=== PATIENT | female | born 1980 | race African-American/Black ===

== ENCOUNTER 2017-09-18 09:10 | Emergency (ER) | payer OTHER ==
[~2017-09-18] VITALS: Ht 154.9 cm; Wt 61.2 kg
[2017-09-18 09:19] VITALS: BP 152/115
[2017-09-18] MEDS ORDERED: ADVAIR HFA 230M12 GM INH (09:20)
[2017-09-18] MEDS ORDERED: SPIRIVA INH (09:20)
[2017-09-18] MEDS ORDERED: PROAIR RESPICL90 MCG INH (09:20)
[2017-09-18] MEDS ORDERED: AUGMENTIN 875-1 EACH PO (09:37)
[2017-09-18] MEDS ORDERED: NORCO 5-325 TA1 EACH PO (09:37)
[2017-09-18] MEDS ORDERED: ZOFRAN ODT4 MG PO (09:37)
[2017-09-18] MEDS ORDERED: ANTIVERT25 MG PO (09:37)
== END 2017-09-18 09:43 | disposition home or self-care (01) ==
LOC: M.ERS 09:10
DX: H66.91 Otitis media, unspecified, right ear (principal); J45.909 Unspecified asthma, uncomplicated; Z90.49 Acquired absence of other specified parts of digestive tract; Z90.710 Acquired absence of both cervix and uterus; Z91.041 Radiographic dye allergy status

== ENCOUNTER → 2020-07-16 | Outpatient (CLI) | payer OTHER ==
[~2020-07-16] MED LIST: ADVAIR HFA 230M12 GM INH; ANTIVERT25 MG PO; AUGMENTIN 875-1 EACH PO; NORCO 5-325 TA1 EACH PO; PROAIR RESPICL90 MCG INH; SPIRIVA INH; ZOFRAN ODT4 MG PO
== END ==
LOC: M.RAD 07:17
PROVIDERS: ATTEND Internal Medicine
DX: Z12.31 Encounter for screening mammogram for malignant neoplasm of breast (principal); N64.89 Other specified disorders of breast